=== PATIENT | female | born 1995 | race Hispanic/Latino ===

== ENCOUNTER 2018-05-27 17:38 | Emergency (ER) | payer OTHER, SELFPAY ==
--- NOTE | 2018-05-27 20:54 | ULT ---
PELVIC ULTRASOUND: 05/27/18 COMPARISON: None. HISTORY: Pelvic pain. patient. Patient fell yesterday, nausea. FINDINGS: Single intrauterine gestation. Vertex presentation. heart tones with a rate of 147 beats per mi nute. Cervix is not adequately assessed. The uterus measures approximately 13.4 x 7.4 x 8.4 cm. BIOMETRY: BPD 2.47 cm 14 weeks, 2 days Head circumference 9.09 cm 14 weeks, 1 day Abdominal circumference 7.32 cm 13 weeks, 6 days Femur length 1.22 cm 13 weeks, 4 days Average age by sonography is 13 weeks, 6 days. Posterior placenta is noted. No masses or fluid in the left or right adnexa. IMPRESSION: 1. Single intrauterine gestation with heart tones. 2. Average age by sonography is 13 weeks, 6 days. 3. Limited evaluation of the cervix. Posterior placenta is noted. POS: SHANE
== END 2018-05-27 21:07 | disposition home or self-care (01) ==
LOC: ERS 17:38
DX: O99.89 Other specified diseases and conditions complicating pregnancy, childbirth and the puerperium (principal); M54.5 Low back pain; O99.341 Other mental disorders complicating pregnancy, first trimester; F41.9 Anxiety disorder, unspecified; Z3A.13 13 weeks gestation of pregnancy
CPT/HCPCS: 76856; 93976

== ENCOUNTER 2018-08-22 10:43 | Emergency (ER) | payer OTHER | END 2018-08-22 12:22 | disposition home or self-care (01) | LOC: ERS 10:43 | DX: O99.512 Diseases of the respiratory system complicating pregnancy, second trimester (principal); J06.9 Acute upper respiratory infection, unspecified; O99.342 Other mental disorders complicating pregnancy, second trimester; F41.9 Anxiety disorder, unspecified; Z3A.26 26 weeks gestation of pregnancy | CPT/HCPCS: 87804; 99283 ==

== ENCOUNTER 2018-11-19 08:12 | Inpatient (IN) | payer OTHER ==
[2018-11-19 09:11] VITALS: BMI 48.9
[2018-11-19 10:11] LABS: Amnisure Test RUPTURE DETECTED (No Rupture)
[2018-11-19 10:12] LABS: Amnisure Internal Control QC ACCEPTABLE (ACCEPTABLE)
[2018-11-19] MEDS ORDERED: Fentanyl 4 mcg/Bup 0.1% Cadd 100 ML ONE ×2 (10:41→18:48)
[2018-11-19] MEDS ORDERED: Lidocaine 1.5% w/Epi 1:200K 30 ML VIAL (Epid Use) ONE (10:43)
[2018-11-19] MEDS ORDERED: Ibuprofen 800 MG TAB PO PRN (11:06)
[2018-11-19] MEDS ORDERED: Lidocaine 1% (PF) 30 ML VIAL SC PRN (11:06)
[2018-11-19] MEDS ORDERED: Docusate 100 MG CAP PO PRN (11:06)
[2018-11-19] MEDS ORDERED: HYDROcodone/Acetaminophen 5/325 mg Tablet PO PRN ×2 (11:06)
[2018-11-19] MEDS ORDERED: Ondansetron PF 4 MG/2 ML Vial IVP PRN ×4 (11:06→23:10)
[2018-11-19] MEDS ORDERED: Diphenoxylate HCl/Atropine Tablet PO PRN ×2 (11:06)
[2018-11-19] MEDS ORDERED: NS / Oxytocin 40 units/1000ml 1,000 ML IV PRN (11:06)
[2018-11-19] MEDS ORDERED: Promethazine HCl 25 MG/ML VIAL IM PRN ×3 (11:06→22:13)
[2018-11-19] MEDS ORDERED: Acetaminophen 500 MG TAB PO PRN (11:06)
[2018-11-19] MEDS ORDERED: Butorphanol Tartrate 1 MG/ML VIAL SLOW IVP PRN (11:06)
[2018-11-19] MEDS ORDERED: NS w/ Oxytocin 10 units 500 ML IV SCH ×2 (11:15)
[2018-11-19 12:12] LABS: Hemoglobin 12.1 g/dL (12.0-16.0); Mean Corpuscular HGB CONC 34.2 g/dL (32.0-36.0); Mean Corpuscular Hemoglobin 28.9 pg (27.0-31.0); Mean Corpuscular Volume 84.5 fL (78.0-98.0); Mean Platelet Volume 10.6 fL (7.4-10.4); Platelet Count 187 thou/uL (130-400); RBC Distribution Width 14.6 % (11.5-14.5); Red Blood Cell (RBC) Count 4.18 mill/uL (4.20-5.40)
[2018-11-19] MEDS ORDERED: NS w/ Oxytocin 10 units 500 ML ONE (12:17)
[2018-11-19 12:45] LABS: HBSAg Index 0.23 S/CO (0-0.99); Hep B Surf Ag Non-Reactive S/CO (NonReactive); Syphilis Antibody Nonreactive (Nonreactive); Syphilis Antibody Index 0.03 S/CO (<1.00 Non-Reactive)
[2018-11-19] MEDS ORDERED: Clindamycin/D5W 900 mg/50 ml Premix Bag ONE (13:53)
[2018-11-19] MEDS ORDERED: Clindamycin/D5W 900 MG in Premix Bag 1 BAG IVPB SCH (14:00)
[2018-11-19] MEDS ORDERED: ePHEDrine/0.9% NaCl/PF SYRINGE 50 mg/10 ml SLOW IVP PRN (14:42)
[2018-11-19] MEDS ORDERED: diphenhydrAMINE 50 MG/ML VIAL IVP PRN ×2 (14:42→22:13)
[2018-11-19] MEDS ORDERED: Naloxone HCl 0.4 mg/ml Vial IVP PRN ×4 (14:42→22:13)
[2018-11-19] MEDS ORDERED: Eucerin (Mineral Oil/Petrolatum,White) 30 gm Jar TOP PRN (14:42)
[2018-11-19] MEDS ORDERED: Lactated Ringer's 500 ML IV PRN (14:42)
[2018-11-19] MEDS ORDERED: Acetaminophen 325 MG TAB PO PRN (14:42)
[2018-11-19] MEDS ORDERED: Fentanyl 4 mcg/Bupivacaine 0.1% Cassette 100 ML EPIDURAL SCH (14:45)
[2018-11-19] MEDS ORDERED: Communication Order-Pharmacy FS SCH ×2 (14:45→22:15)
[2018-11-19] MEDS ORDERED: Ondansetron PF 4 MG/2 ML Vial ONE ×2 (15:43→21:11)
[2018-11-19] MEDS ORDERED: ePHEDrine/0.9% NaCl/PF SYRINGE 50 mg/10 ml ONE ×2 (15:43→21:34)
[2018-11-19] MEDS ORDERED: Lidocaine 2% 10 ML INJ ONE (20:54)
[2018-11-19] MEDS ORDERED: Oxytocin 10 UNITS/ML VIAL ONE (21:11)
[2018-11-19] MEDS ORDERED: Morphine PF 1 MG/ML SYR ONE (22:08)
[2018-11-19 22:13] LABS: Actual Bicarbonate (HCO3a) 24.6 mEq/L (22-28); Base Excess (BEa) -3.9 mEq/L (-2.0 to +3.0); Calcium, Ionized 1.29 mmol/L (1.12-1.30); Carboxyhemoglobin (COHb) 0.9 gm% (0.0-3.0); Hemoglobin (Hb) 16.7 g/dL (12.0-16.0); Potassium - ABG Lab 4.69 mmol/L (3.70-5.30)
[2018-11-19] MEDS ORDERED: Hydrocerin (Eucerin) Cream 120 gm Jar TOP PRN (22:13)
[2018-11-19] MEDS ORDERED: Promethazine HCl 25 MG SUPP PR PRN (22:13)
[2018-11-19] MEDS ORDERED: Naloxone HCl 0.4 mg/ml Vial IV PRN (22:13)
[2018-11-19 22:19] LABS: O2 Tension (PaO2) 16.8 mmHg (80.0-100.0); pH, Arterial 7.25 (7.35-7.45)
[2018-11-19] MEDS ORDERED: Bupivacaine/Epinephrine 0.5% 10 ML VIAL ONE (22:19)
[2018-11-19] MEDS ORDERED: Fentanyl 100 MCG/2 ML VIAL ONE (22:19)
[2018-11-19] MEDS ORDERED: Bupivacaine 0.25% HCL 30 ML VIAL ONE (22:20)
[2018-11-19] MEDS ORDERED: Zolpidem Tartrate 5 MG TAB PO PRN (23:10)
[2018-11-19] MEDS ORDERED: Bisacodyl 10 MG SUPP PR PRN (23:10)
[2018-11-19] MEDS ORDERED: diphenhydrAMINE 25 MG CAP PO PRN (23:10)
[2018-11-19] MEDS ORDERED: Lanolin Ointment 7 GM TUBE TOP PRN (23:10)
[2018-11-19] MEDS ORDERED: Misoprostol 200 MCG TAB PR PRN (23:10)
[2018-11-19] MEDS ORDERED: Meperidine HCl/PF 25 MG/ML VIAL IM PRN (23:10)
[2018-11-19] MEDS ORDERED: Simethicone Chewable 80 MG TAB PO PRN (23:10)
[2018-11-19] MEDS ORDERED: Lactated Ringer's 1,000 ML IV SCH (23:15)
[2018-11-19] MEDS ORDERED: NS / Oxytocin 40 units/1000ml 1,000 ML IV SCH (23:15)
[2018-11-20] MEDS ORDERED: Ketorolac Tromethamine 30 MG/ML VIAL ONE (00:17)
[2018-11-20] MEDS: Ketorolac Tromethamine 30 MG/ML VIAL IVP PRN ×3 (00:20→15:15)
[2018-11-20 06:33] LABS: Hemoglobin 10.5 g/dL (12.0-16.0); Mean Corpuscular Hemoglobin 28.6 pg (27.0-31.0); Mean Corpuscular Volume 86.6 fL (78.0-98.0); Mean Platelet Volume 10.1 fL (7.4-10.4); Platelet Count 142 thou/uL (130-400); RBC Distribution Width 14.4 % (11.5-14.5); Red Blood Cell (RBC) Count 3.68 mill/uL (4.20-5.40); White Blood Cell (WBC) Count 12.8 thou/uL (4.8-10.8)
[2018-11-20] MEDS: Sodium Chloride 0.9% 10 ML ONE ×2 (06:38→15:15)
[2018-11-20] MEDS ORDERED: Adacel (T-DAP) 0.5 ML SYRINGE IM ONE (09:00)
[2018-11-20] MEDS: HYDROcodone/Acetaminophen 5/325 mg Tablet PO PRN (10:55)
[2018-11-20] MEDS: Ferrous Sulfate 325 MG TAB PO SCH ×2 (11:17→15:04)
[2018-11-20] MEDS: Prenatal Vitamin 1 TAB PO SCH (11:17)
[2018-11-20] MEDS: Docusate Calcium (SURFAK) 240 MG CAP PO SCH ×2 (11:17→21:56)
[2018-11-20] MEDS: Lactated Ringer's 1,000 ML IV SCH ×2 (13:26→13:27)
[2018-11-20] MEDS ORDERED: Sodium Chloride 0.9% 10 ML ONE (15:54)
[2018-11-20] MEDS: Ibuprofen 800 MG TAB PO SCH (21:56)
[2018-11-21] MEDS: HYDROcodone/Acetaminophen 5/325 mg Tablet PO PRN ×2 (00:41→09:03)
[2018-11-21] MEDS ORDERED: Ibuprofen 800 MG TAB PO SCH (06:00)
[2018-11-21] MEDS: Ibuprofen 800 MG TAB PO SCH ×3 (06:04→21:53)
[2018-11-21] MEDS: Prenatal Vitamin 1 TAB PO SCH (09:01)
[2018-11-21] MEDS: Docusate Calcium (SURFAK) 240 MG CAP PO SCH ×2 (09:01→21:53)
[2018-11-21] MEDS: Ferrous Sulfate 325 MG TAB PO SCH ×2 (09:09→17:24)
--- NOTE | 2018-11-21 15:59 | OP ---
DATE OF PROCEDURE: 11/19/2018 ATTENDING STAFF PHYSICIAN: Yusuf Olsen MD. SURGEON: Yusuf Olsen MD. [employer] C[employer] SURGEON: Xin Webster MD. PREOPERATIVE DIAGNOSES: 1. Term intrauterine at 38 and 6/7th weeks. 2. Failure to progress. 3. Arrest of descent and dilatation. POSTOPERATIVE DIAGNOSES: 1. Term intrauterine at 38 and 6/7th weeks. 2. Failure to progress. 3. Arrest of descent and dilatation. 4. Cephalopelvic disproportion (CPD). PROCEDURE PERFORMED: Primary low-transverse section. ANESTHESIA: Epidural catheterization. FINDINGS: 1. Arrest at 8 cm dilation, complete effacement, +1 station. 2. Viable male infant, 7 pounds 0 ounces, Apgars 6 and 9. 3. Normal uterus, tubes, and ovaries. COMPLICATIONS: None. SPECIMENS REMOVED: Cord blood. BLOOD LOSS: 500 mL (QBL 420 mL). HISTORY AND INDICATIONS: Ms. Fiona Swift is a pleasant 23-year-old female, G2, P0-0-1-1, who is following my clinic at [facility] for her obstetric care. She presented on the morning of 11/19/2018, complaining of leaking fluid. Spontaneous rupture of membranes was confirmed. Her cervix at that time was 5 cm, complete, -1 station with vertex presentation. Pitocin augmentation was initiated to facilitate delivery. She subsequently progressed to 9+ cm, complete effacement, and +1 station. There was a significant caput moulding, and she made no further progress with failure to progress. She actually had cervical swelling, and at the time delivery was called, she was 8 cm, 90% effaced, and +1 station. After thorough consent and counselling, decision was made to proceed with primary low-transverse section secondary to failure to progress and transverse arrest of descent and dilatation. Questions were answered, and surgical disclosures were signed and placed in the chart. DESCRIPTION OF PROCEDURE: After consent and counselling, Fiona was taken to the operating room and adequate level of anesthesia was obtained by epidural catheterization. The patient was prepped and draped in usual sterile fashion for abdominal surgery. A Hurley was already in the bladder, which was draining clear urine. Attention was then turned performing the primary low-transverse section. A Pfannenstiel incision was made and carried sharply to the fascia, which was also sharply incised. The midline was identified, and rectus muscles were retracted laterally. The abdominoperitoneal cavity was entered with usual safeguards carried out. A retractor was placed, and a bladder flap was created on the vesicouterine peritoneum. A bladder blade was then placed. A low-transverse incision was made on the well-developed lower uterine segment. Upon entering the amniotic sac, a scant amount of clear amniotic fluid was visualized. The infant was noted to be vertex presentation in the occiput transverse position still high in the pelvis. Head was delivered, and baby was bulb suctioned on the abdomen. Nuchal cord x1 was reduced. Shoulders and body were then delivered in an atraumatic fashion. Cord was doubly clamped and cut, and the was handed to the Pediatric Team in attendance for the delivery. The was a viable male weighing 7 pounds. There was considerable amount of caput moulding. Apgars were 6 and 9 at one and five minutes respectively. Cord blood was obtained. The placenta was manually removed from the uterus. The uterus was exteriorized, and good tone was noted. The uterine cavity was cleared of any remaining clot and fluid. The low-transverse incision was closed with a running locking ligature of #1 chronic. A second imbricating layer was placed to facilitate strength and hemostasis. Seprafilm was applied to the low-transverse incision and to the anterior aspect of the uterus for adhesion prevention. The posterior cul-de-sac and gutters were cleared of clot and fluid. The uterus was returned to the abdomen, and good tone was appreciated. The incision was hemostatic. Lap, sponge, and needle counts were correct. The uterus, fallopian tubes, and ovaries were normal. The peritoneum was closed with a running ligature of 2-0 Vicryl suture. The rectus muscles were reapproximated in the midline with interrupted ligatures of 2-0 Vicryl and #1 chromic. The fascia was closed with 2 ligatures of 0 Vicryl tied in the midline. Good fascial integrity was appreciated. The incision was irrigated with copious amount of warm normal saline. The subcutaneous tissue was then closed with interrupted ligatures of 2-0 plain. Multiple layers were required to completely reapproximate the subcutaneous tissue. The skin was closed with subcuticular stitch of 4-0 Monocryl and dressed with Dermabond x2. A pressure dressing and ice packs were subsequently placed. Immediately following the surgery, the patient was taken to the recovery room in good condition. The patient and family were made aware of the surgical procedure and operative findings. Questions were answered to their satisfaction. Job ID: [id number]
[2018-11-22] MEDS: Ibuprofen 800 MG TAB PO SCH ×2 (05:38→13:27)
[2018-11-22] MEDS: HYDROcodone/Acetaminophen 5/325 mg Tablet PO PRN ×2 (05:41→13:27)
[2018-11-22 09:10] VITALS: BP 111/59; TEMP 98.1
[2018-11-22] MEDS: Prenatal Vitamin 1 TAB PO SCH (10:10)
[2018-11-22] MEDS: Docusate Calcium (SURFAK) 240 MG CAP PO SCH (10:10)
[2018-11-22] MEDS: Ferrous Sulfate 325 MG TAB PO SCH (10:11)
== END 2018-11-22 14:15 | disposition home or self-care (01) | DRG 788 ==
LOC: L&D/OP 08:12 → L&D 09:38 → 3SE 11-20 01:13
PROVIDERS: ADMIT Obstetrics & Gynecology; ATTEND Obstetrics & Gynecology
PROC: 10D00Z1 Extraction of Products of Conception, Low, Open Approach (ICD-10-PCS; principal; 2018-11-19)
PROC: 3E0P05Z Introduction of Adhesion Barrier into Female Reproductive, Open Approach (ICD-10-PCS; 2018-11-19)
DX: O62.1 Secondary uterine inertia (principal); O24.429 Gestational diabetes mellitus in childbirth, unspecified control; O99.214 Obesity complicating childbirth; E66.01 Morbid (severe) obesity due to excess calories; Z3A.38 38 weeks gestation of pregnancy; Z37.0 Single live birth; O33.9 Maternal care for disproportion, unspecified; O99.344 Other mental disorders complicating childbirth; F41.9 Anxiety disorder, unspecified; F32.9 Major depressive disorder, single episode, unspecified; O69.81X0 Labor and delivery complicated by cord around neck, without compression, not applicable or unspecified
CPT/HCPCS: 36415; 51702; 82805; 84112; 85027; 86780; 86850; 86900; 86901; 87340; 88307; 99285; J1580; J1885; J2001; J2274; J2405; J2590; J3010; J3490; J7050; S0020

== ENCOUNTER 2021-04-11 01:12 | Emergency (ER) | payer OTHER ==
[2021-04-11 01:43] LABS: #Eosinphils 0.2 thou/uL (0.0-0.7); #Lymphocytes 3.9 thou/uL (1.20-3.40); #Monocytes 0.5 thou/uL (0.11-0.59); #Neutrophils 6.4 thou/uL (1.40-6.50); %Basophils 0.4 % (0.0-1.0); %Eosinophils 1.6 % (0.0-10.0); %Lymphocytes 35.3 % (21.0-51.0); %Monocytes 4.9 % (0.0-10.0); %Neutrophils 57.8 % (42.0-75.0); Hemoglobin 13.1 g/dL (12.0-16.0); Mean Corpuscular Hemoglobin 30.2 pg (27.0-31.0); Mean Corpuscular Volume 88.8 fL (78.0-98.0); Mean Platelet Volume 9.5 fL (7.4-10.4); Platelet Count 208 thou/uL (130-400); Red Blood Cell (RBC) Count 4.32 mill/uL (4.20-5.40); White Blood Cell (WBC) Count 11.1 thou/uL (4.8-10.8)
[2021-04-11 02:03] LABS: ALT (SGPT) 106 U/L (8-55); AST (SGOT) 50 U/L (5-34); Albumin 3.9 g/dL (3.5-5.0); Alkaline Phosphatase 94 U/L (40-110); Anion Gap 12 mmol/L (10-20); BUN (Urea Nitrogen) 10 mg/dL (7.0-18.7); Calc. Creatinine Clearance 0 mL/min (70-130); Calcium 9.1 mg/dL (7.8-10.44); Carbon Dioxide 28 mmol/L (22-29); Chloride 106 mmol/L (98-107); Globulin 3.5 g/dL (2.4-3.5); Glucose 95 mg/dL (70-105); Potassium 3.6 mmol/L (3.5-5.1); Protein, Total 7.4 g/dL (6.0-8.3); Sodium 142 mmol/L (136-145)
[2021-04-11 02:44] LABS: Bilirubin Negative (Negative); Blood, Urine Trace (Negative); Glucose, Urine (Dipstick) Negative (Negative); Ketone, Urine Negative (Negative); Leukocyte Negative (Negative); Nitrite Negative (Negative); Protein, Urine (Dipstick) Negative (Neg-Trace)
[2021-04-11 02:45] LABS: Clarity Clear (Clear)
[2021-04-11 02:46] LABS: Pregnancy Test - Urine (BHCG) Negative (Negative); Pregu Control Background? CLEAR/WHITE (CLR/WHITE); Pregu Control Bar Appear? YES (CONTROL BAR)
[2021-04-11 02:49] LABS: Bacteria/HPF None Seen HPF (None Seen); RBC/HPF 0-3 HPF (0-3); Squamous Epithelial 0-3 HPF (0-3); WBC/HPF 0-3 HPF (0-3)
== END 2021-04-11 04:20 | disposition home or self-care (01) ==
LOC: ERS 01:12
DX: R55 Syncope and collapse (principal)
CPT/HCPCS: 36415; 80053; 81003; 81025; 85025; 93005

== ENCOUNTER 2023-05-22 00:38 | Emergency (ER) | payer OTHER, SELFPAY ==
[2023-05-22] MEDS ORDERED: Ketorolac Tromethamine 30 MG/ML VIAL ONE (00:54)
[2023-05-22 01:20] LABS: #Eosinphils 0.1 thou/uL (0.0-0.7); #Monocytes 0.5 thou/uL (0.11-0.59); %Basophils 0.3 % (0.0-1.0); %Eosinophils 0.6 % (0.0-10.0); %Lymphocytes 16.1 % (21.0-51.0); %Monocytes 4.4 % (0.0-10.0); %Neutrophils 78.2 % (42.0-75.0); Hemoglobin 12.7 g/dL (12.0-16.0); Mean Corpuscular HGB CONC 33.9 g/dL (32.0-36.0); Mean Corpuscular Hemoglobin 29.2 pg (27.0-31.0); Mean Corpuscular Volume 86.2 fl (78.0-98.0); Platelet Count 221 10x3/uL (130-400); RBC Distribution Width 12.6 % (11.5-14.5); Red Blood Cell (RBC) Count 4.35 mill/uL (4.20-5.40); White Blood Cell (WBC) Count 10.2 10x3/uL (4.8-10.8)
[2023-05-22 01:30] LABS: BHCG - Serum Negative (NEGATIVE); Pregs Control Background? CLEAR/WHITE (CLR/WHITE); Pregs Control Bar Appear? YES (CONTROL BAR)
[2023-05-22 01:38] LABS: Bacteria/HPF None Seen HPF (None Seen); Bilirubin Negative (Negative); Blood, Urine 3+ (Negative); CAUTI Indications for Culture Pelvic or flank pain; Clarity Clear (Clear); Glucose, Urine (Dipstick) Normal (Negative); Ketone, Urine Negative (Negative); Leukocyte Negative Leu/uL (Negative); Nitrite Negative (Negative); Protein, Urine (Dipstick) Negative (Neg-Trace); RBC/HPF Greater than 50 HPF (0-3); Specific Gravity, Urine 1.016 (1.002-1.036); Squamous Epithelial 0-3 HPF (0-3); Urobilinogen Normal mg/dL (Less than 2); pH, Urine 5.5 (5.0-9.0)
[2023-05-22 01:47] LABS: Urine Culture Reflex No No
[2023-05-22 01:50] LABS: ALT (SGPT) 42 U/L (8-55); AST (SGOT) 27 U/L (5-34); Albumin 3.5 g/dL (3.5-5.0); Alkaline Phosphatase 77 U/L (40-110); Anion Gap 12 mmol/L (10-20); BUN (Urea Nitrogen) 11 mg/dL (7.0-18.7); Bilirubin, Total 0.5 mg/dL (0.2-1.2); CK (CPK) 72 U/L (29-168); Calc. Creatinine Clearance 0 mL/min (70-130); Calcium 8.7 mg/dL (7.8-10.44); Carbon Dioxide 23 mmol/L (22-29); Chloride 109 mmol/L (98-107); Estimated GFR 114; Globulin 3.1 g/dL (2.4-3.5); Glucose 103 mg/dL (70-105); Lipase 10 U/L (8-78); Potassium 4.1 mmol/L (3.5-5.1); Protein, Total 6.6 g/dL (6.0-8.3); Sodium 140 mmol/L (136-145)
== END 2023-05-22 02:49 | disposition home or self-care (01) ==
LOC: ERS 00:38
DX: R10.9 Unspecified abdominal pain (principal)
CPT/HCPCS: 36415; 74176; 80053; 81001; 82550; 83690; 84703; 85025; 93005; 96374; J1885

== ENCOUNTER 2023-09-19 19:03 | Emergency (ER) | payer BC | END 2023-09-19 20:25 | disposition home or self-care (01) | LOC: ERS 19:03 | DX: K08.89 Other specified disorders of teeth and supporting structures (principal) | CPT/HCPCS: 64400 ==